=== PATIENT | female | born 1975 | race Two or more races ===

== ENCOUNTER → 2024-04-08 | Outpatient (CLI) | payer MEDICAID, SELFPAY ==
--- NOTE | 2024-04-08 13:00 | XR_ITS ---
Examination: Bone densitometry Date and time of exam:April 08, 2024 1326 hours INDICATIONS: Hysterectomy age 46 breast carcinoma diagnosis Technique: Lumbar spine and hip total bone mineralization values of an calculated. Peak reference and age match control results have been displayed. Findings: Lumbar spine total bone mineralization is0.925 gm/cm2. This is 1.1 standard deviations below peak reference. This is 0.6 standard deviations below age-matched controls. Hip total bone mineralization is 0.91 gm/cm2 This is 0.1 standard deviations above peak reference. This is 0.3 standard deviations above age-matched controls Impression: There is osteopenia based on lumbar spine measurements. There is normal mineralization based on hip measurements
== END | disposition home or self-care (01) ==
PROVIDERS: PCP Physician Assistant; Referring Provider Nurse Practitioner Family; Visit Provider Nurse Practitioner Family
DX: M85.88 Other specified disorders of bone density and structure, other site (principal); C50.412 Malignant neoplasm of upper-outer quadrant of left female breast
CPT/HCPCS: 77080

== ENCOUNTER 2024-04-11 13:21 | Outpatient (RCR) | payer MEDICAID, SELFPAY ==
--- NOTE | 2024-04-28 20:53 | CTCFLWUP_ITS ---
Patient: SUAD CAZARES : 1975 Page 2 of 3 FOLLOW UP NOTE DATE OF SERVICE: 04/11/2024 NAME: SUAD CAZARES ACCOUNT: [id number] : 1975 AGE: 48 REASON FOR VISIT: Follow up INTERVAL HISTORY: This is office follow-up visit. Ms. Cazares is here at [facility]. She is clinically doing well. Denies any new complaints. Denies any cough, chest pain, abdominal p ain or leg cramps. Tolerating tamoxifen well, taking since 2020. Denies any significant hot flashes . She is not having any menstrual cycle since she had a hysterectomy done in the past, 2011. Accord ing to patient she still has the ovaries. HISTORY: Suad Cazares is a 48-year-old SPA speaking female with following history. 2016. Patient felt pain in the left breast. 03/2019: Bilateral screening mammograms? 01/02/2020: Bilateral screening mammograms? 02/21/2020 diagnostic left breast mammogram? 02/21/2020: left breast ultrasound? 05/14/2020: Ultrasound-guided biopsy of the left breast lesion? 06/29/2020: Left breast lumpectomy? 08/26/2020?10/08/2020: Ms. Cazares received 6000 cGy radiation therapy to the left breast. 10/20/2020: Patient is started on tamoxifen. 11/12/2020: LH 6.3, FSH 7.2, estradiol 442. 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 Status post biopsy (05/01), Lumpectomy (06/29/2020) and radiation therapy completed on 10/08/2020 Patient is started on tamoxifen on 10/20/2020. Premenopausal status. S/p hysterectomy (2011). 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 Nolvadex - 20 mg Daily 2. tamoxifen - 20 mg 1 tab every 1 day for 30 Days 3. Tylenol Extra Strength - 500 mg 1 tab As needed Medications Last Reconciled by Charisma Barry MA on 04/11/2024 ALLERGIES: No Known Drug Allergies REVIEW OF SYSTEMS: A complete 14-point review of systems was performed and is negative except as noted in interval histo ry. PHYSICAL EXAMINATION: VITAL SIGNS: Temperature?99.6, B/P?133/85, Oxygen?Saturation?100% Weight?157?lbs PAIN: 0 - No pain ECOG Performance Status: 0 - Asymptomatic and fully active GENERAL APPEARANCE: Appears well, in no apparent distress, appropriately interactive. HEENT: Normocephalic, no temporal wasting, normal conjunctiva, no scleral icterus, normal hearing, li ps without lesions, neck normal range of motion. CARDIOVASCULAR: Not assessed. PULMONARY: Normal respiratory effort, no respiratory distress or use of accessory muscles, speaking i n full sentences, no tachypnea. EXTREMITIES: No pedal edema or cyanosis. SKIN: Normal skin appearance. NEUROLOGIC: Alert and ORIENTED x4. PSHYCHIATRIC: Appropriate affect, mood normal, behavior normal, intact thought and speech. 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 Negative for invasion. Status post biopsy (05/14/2020), S/p lumpectomy (06/29/2020) and adjuvant radiati on therapy completed on 10/08/2020 Patient is started on tamoxifen on (10/20/2020-), premenopausal stat us. S/p hysterectomy (2011). Ms. Cazares had a hysterectomy done in 2011 in [place] for some hoda of benign tumor. According to patient, she did not have the oophorectomy at that time. Will check CBC CMP FSH, LH, Estradiol, if labs indicate patient is postmenopausal, will consider disc ontinuing tamoxifen and starting exemestane. If patients is not postmenopausal, will consider initiating Lupron and continuing tamoxifen for about 3 years, once patients is postmenopausal then discontinue Lupron and tamoxifen and initiating exemes tane for 7 years. 04/08/2024 DEXA -Osteopenia mammogram screening is negative ORDERS: Mamm and cbc .cmp RETURN TO CLINIC: 12 months BILLING AND COMPLIANCE: I reviewed external records from providers outside my specialty as summarized above. I spent a total of 50 minutes on this patient?s care on the day of their visit excluding time spent related to any bi lled procedures. This time includes time spent with the patient as well as time spent documenting in the medical record, reviewing patients records and tests, obtaining history, placing orders, communi cating with other healthcare professionals, counseling the patient, family or caregiver, and/or care coordination for the diagnoses above. Electronically Signed by: lForentino Headley MD T: 8:50 PM CC: Arturo--Nikki? PCP: Pavithra Alexander Referring: Pavithra Alexander This document was completed utilizing speech recognition software. Grammatical errors, random word in sertions, pronoun errors, and incomplete sentences are an occasional consequence of this system due t o software limitations, ambient noise, and hardware issues. Any formal questions or concerns about th e content, text or information contained within the body of this dictation should be directly address ed to the provider for clarification.
== END 2024-04-30 23:59 | disposition home or self-care (01) ==
LOC: SCTC 13:21
PROVIDERS: PCP Physician Assistant; Referring Provider Physician Assistant; Visit Provider Internal Medicine Hematology & Oncology
DX: D05.12 Intraductal carcinoma in situ of left breast (principal); Z17.0 Estrogen receptor positive status [ER+]; Z17.21 Progesterone receptor positive status; Z79.810 Long term (current) use of selective estrogen receptor modulators (SERMs); Z79.818 Long term (current) use of other agents affecting estrogen receptors and estrogen levels; Z90.12 Acquired absence of left breast and nipple; Z90.710 Acquired absence of both cervix and uterus; M85.80 Other specified disorders of bone density and structure, unspecified site
CPT/HCPCS: 99213; G0463

== ENCOUNTER 2024-05-09 13:14 | Outpatient (RCR) | payer MEDICAID, SELFPAY | END 2024-05-31 23:59 | disposition home or self-care (01) | LOC: SCTC 13:14 | PROVIDERS: PCP Physician Assistant; Referring Provider Physician Assistant; Visit Provider Internal Medicine Hematology & Oncology | DX: Z53.8 Procedure and treatment not carried out for other reasons (principal); D05.12 Intraductal carcinoma in situ of left breast; Z17.0 Estrogen receptor positive status [ER+]; Z17.21 Progesterone receptor positive status; Z90.12 Acquired absence of left breast and nipple | CPT/HCPCS: J3489 ==

== ENCOUNTER 2024-08-07 08:39 | Outpatient (RCR) | payer MEDICAID, SELFPAY | END 2024-08-28 23:59 | disposition home or self-care (01) | LOC: SCTC 08:39 | PROVIDERS: PCP Physician Assistant; Referring Provider Physician Assistant; Visit Provider Nurse Practitioner Family | DX: D05.12 Intraductal carcinoma in situ of left breast (principal); Z17.0 Estrogen receptor positive status [ER+]; Z17.21 Progesterone receptor positive status; Z92.3 Personal history of irradiation; Z79.810 Long term (current) use of selective estrogen receptor modulators (SERMs); Z90.710 Acquired absence of both cervix and uterus; M85.80 Other specified disorders of bone density and structure, unspecified site | CPT/HCPCS: 99212; G0463 ==

== ENCOUNTER → 2024-09-06 | Outpatient (CLI) | payer MEDICAID, SELFPAY ==
--- NOTE | 2024-09-06 13:00 | XR_ITS ---
Examination: Breast ultrasound, unilateral, left complete Date and time of exam: September 06, 2024 1338 hours INDICATIONS: Personal history left breast cancer Technique: Real-time medel scale ultrasonographic imaging performed left breast including all 4 quadrants as well as nipple retroareolar and axillary region. Findings: No cystic or solid mass Scar formation at 2:00 position left breast IMPRESSION: BI-RADS Category 3: Probably benign findings Recommend continued 6 month left breast sonogram follow-up to document stability of probably benign scar formation 2:00 position left breast
--- NOTE | 2024-09-06 13:30 | XR_ITS ---
Examination: Diagnostic digital mammography, unilateral, left Computer aided detection 3-D breast Tomosynthesis, unilateral Date and time of exam: September 06, 2024 1401 hours Compared to mammograms dating to 01/29/2020 Technique: Nonmagnified MLO, CC views of the left breast have been obtained, reconstructed from 3-D Tomosynthesis images. R2 computer aided detection program utilized for evaluation of suspicious masses and/or abnormal calcifications. 3-D Tomosynthesis images obtained. Findings: Scattered areas of fibroglandular density. Benign calcifications No interval suspicious masses Impression: BI-RADS category 2: Benign findings Recommend yearly follow-up mammography
== END | disposition home or self-care (01) ==
PROVIDERS: PCP Physician Assistant; Referring Provider Nurse Practitioner Family; Visit Provider Nurse Practitioner Family
DX: C50.412 Malignant neoplasm of upper-outer quadrant of left female breast (principal); R92.1 Mammographic calcification found on diagnostic imaging of breast; R92.332 Mammographic heterogeneous density, left breast
CPT/HCPCS: 76641; 77061; 77065; G0279

== ENCOUNTER 2024-09-12 14:24 | Outpatient (RCR) | payer MEDICAID, SELFPAY | END 2024-09-28 23:59 | disposition home or self-care (01) | LOC: SCTC 14:24 | PROVIDERS: PCP Physician Assistant; Referring Provider Physician Assistant; Visit Provider Nurse Practitioner Family | DX: D05.12 Intraductal carcinoma in situ of left breast (principal); Z90.12 Acquired absence of left breast and nipple; Z92.3 Personal history of irradiation; Z17.0 Estrogen receptor positive status [ER+]; Z17.21 Progesterone receptor positive status; Z78.0 Asymptomatic menopausal state; Z90.710 Acquired absence of both cervix and uterus; M85.80 Other specified disorders of bone density and structure, unspecified site; Z79.811 Long term (current) use of aromatase inhibitors | CPT/HCPCS: 99212; G0463 ==

== ENCOUNTER 2024-10-16 15:17 | Outpatient (RCR) | payer MEDICAID, SELFPAY ==
--- NOTE | 2024-10-16 16:33 | CTCFLWUP_ITS ---
Patient: TORO CAZARES : 1975 Page 2 of 2 FOLLOW UP NOTE DATE OF SERVICE: 10/16/2024 NAME: TORO CAZARES ACCOUNT: [id number] : 1975 AGE: 49 INTERVAL HISTORY: Patient is here for follow-up. Patient states that she has a history of hysterectomy which was completed in 2011 but her ovaries were never removed. She is questioning if she is in menopause. She does not know if she was ever tested for her menopause status. At her last visit she had her medication changed to exemestane. She is not happy with the exemestane as it causes her to feel very tired. She wants to switch back to tamoxifen. She also takes her calcium and vitamin D as prescribed. 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 Status post biopsy (05/14/2020), Lumpectomy (06/29/2020) and radiation therapy completed on 10/08/2020 Patient is started on tamoxifen on 10/20/2020. Premenopausal status. S/p hysterectomy (2011). Osteopenia, 04/08/2024 Malignant neoplasm of upper-outer quadrant of left female breast [ICD10] C50.412 DATE OF DIAGNOSIS: 05/14/2020 STAGE/TNM: TREATMENT HISTORY: Care?Plan Start?Date Cycle Day Intent Zoledronic?Acid?4?mg?adjuvant 05/09/2024 1 180 Maintenance HISTORY OF PRESENT ILLNESS: Patient is 49-year-old woman who was diagnosed with DCIS ER/CO positive in 2020 underwent lumpectomy in June 2020 and has been on tamoxifen since . Patient also received radiation. Patient had a hysterectomy done in 2011 in [place] for some kind of benign tumors. Patient says that she did not had oophorectomy. 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 alendronate - 35 mg 1 tab one tab po q weekly 2. Calcium 600 with Vitamin D3 - 600 mg-10 mcg (400 unit) 1 tab one tablet twice daily 3. Citracal + D Slow Release - 600 mg-12.5 mcg (500 unit) 1 tab one tab po twice a day 4. tamoxifen - 20 mg 1 tab Daily 5. Tylenol Extra Strength - 500 mg 1 tab As needed Medications Last Reconciled by Jena Barrios MA on 10/16/2024 ALLERGIES: No Known Drug Allergies REVIEW OF SYSTEMS: A complete 14-point review of systems was performed and is negative except as noted in interval history. PHYSICAL EXAMINATION: VITAL SIGNS: PAIN: 0 - No pain ECOG Performance Status: 0 - Asymptomatic and fully active GENERAL APPEARANCE: Appears well, in no apparent distress, appropriately interactive. HEENT: Normocephalic, no temporal wasting, normal conjunctiva, no scleral icterus, normal hearing, lips without lesions, neck normal range of motion, no neck lymphadenopathy CARDIOVASCULAR: Not assessed. PULMONARY: Normal respiratory effort, no respiratory distress or use of accessory muscles, speaking in full sentences, no tachypnea. BREAST: No palpable lumps to left breast, no lumps to left axilla, healed surgical scar EXTREMITIES: No pedal edema or cyanosis. SKIN: Normal skin appearance. NEUROLOGIC: Alert and ORIENTED x4. PSHYCHIATRIC: Appropriate affect, mood normal, behavior normal, intact thought and speech. LABORATORY DATA: I have personally reviewed and interpreted each of the patient?s relevant lab tests, abnormal findings are below: Date ASSESSMENT/PLAN: 1. 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 Negative for invasion. Status post biopsy (05/14/2020), S/p lumpectomy (06/29/2020) and adjuvant radiation therapy completed on 10/08/2020 Patient is started on tamoxifen on (10/20/2020-), premenopausal status. S/p hysterectomy (2011). Ms. Cazares had a hysterectomy done in 2011 in [place] for some hoda of benign tumor. According to patient, she did not have the oophorectomy at that time. Patient had labs drawn in May 2024 which showed that patient was in menopause as per previous documentation I will repeat the labs as patient have concerns Patient already scheduled for breast ultrasound in March 2025 Advised to continue tamoxifen as patient unable to tolerate exemestane Will DC exemestane Tamoxifen reordered Will recheck the labs to confirm her menopause status 3. History of osteopenia 04/08/2024 Start Zometa after 01/29/2025, 6 months after dental work. ORDERS: Order # Description [id number] + MD Follow Up 4 Week [id number] Gonadotropin (Fsh) + Estradiol + Gonadotropin; Luteinizing Hormone (Lh) [id number] Infusion 1 Hour [id number] Infusion 1 Hour [id number] Infusion 1 Hour [id number] Infusion 1 Hour [id number] Infusion 1 Hour RETURN TO CLINIC: In 4 months BILLING AND COMPLIANCE: I reviewed external records from providers outside my specialty as summarized above. I spent a total of 50 minutes on this patient?s care on the day of their visit excluding time spent related to any billed procedures. This time includes time spent with the patient as well as time spent documenting in the medical record, reviewing patients records and tests, obtaining history, placing orders, communicating with other healthcare professionals, counseling the patient, family or caregiver, and/or care coordination for the diagnoses above. Electronically Signed by: Florentino Headley MD T: 4:31 PM CC: Arturo--Nikki,? PCP: Pavithra Alexander Referring: Pavithra Alexander This document was completed utilizing speech recognition software. Grammatical errors, random word insertions, pronoun errors, and incomplete sentences are an occasional consequence of this system due to software limitations, ambient noise, and hardware issues. Any formal questions or concerns about the content, text or information contained within the body of this dictation should be directly addressed to the provider for clarification.
== END 2024-10-28 23:59 | disposition home or self-care (01) ==
LOC: SCTC 15:17
PROVIDERS: PCP Physician Assistant; Referring Provider Physician Assistant; Visit Provider Internal Medicine Hematology & Oncology
DX: D05.12 Intraductal carcinoma in situ of left breast (principal); Z17.0 Estrogen receptor positive status [ER+]; Z17.21 Progesterone receptor positive status; Z90.12 Acquired absence of left breast and nipple; Z92.3 Personal history of irradiation; Z79.810 Long term (current) use of selective estrogen receptor modulators (SERMs); Z90.710 Acquired absence of both cervix and uterus; M85.80 Other specified disorders of bone density and structure, unspecified site
CPT/HCPCS: 99212; G0463

== ENCOUNTER 2024-11-06 12:51 | Outpatient (RCR) | payer MEDICAID, SELFPAY | END 2024-11-28 23:59 | disposition home or self-care (01) | LOC: SCTC 12:51 | PROVIDERS: PCP Physician Assistant; Referring Provider Physician Assistant; Visit Provider Radiology Therapeutic Radiology | DX: M85.80 Other specified disorders of bone density and structure, unspecified site (principal); D05.12 Intraductal carcinoma in situ of left breast; Z17.0 Estrogen receptor positive status [ER+]; Z17.21 Progesterone receptor positive status; Z90.12 Acquired absence of left breast and nipple; Z92.3 Personal history of irradiation; Z79.810 Long term (current) use of selective estrogen receptor modulators (SERMs); Z90.710 Acquired absence of both cervix and uterus | CPT/HCPCS: J3489 ==

== ENCOUNTER 2025-01-14 11:26 | Outpatient (RCR) | payer MEDICAID, SELFPAY ==
--- NOTE | 2025-01-14 14:23 | CTCFLWUP_ITS ---
Patient: TORO CAZARES : 1975 Page 2 of 3 FOLLOW UP NOTE DATE OF SERVICE: 01/14/2025 NAME: TORO CAZARES ACCOUNT: [id number] : 1975 AGE: 49 INTERVAL HISTORY: Patient is here for follow-up. Patient states that she has a history of hysterectomy which was completed in 2011 but her ovaries were never removed. Workup shows patient is still premenopausal. Patient is taking tamoxifen. 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 Status post biopsy (05/14/2020), Lumpectomy (06/29/2020) and radiation therapy completed on 10/08/2020 Patient is started on tamoxifen on 10/20/2020. Premenopausal status. S/p hysterectomy (2011). Osteopenia, 04/08/2024 Malignant neoplasm of upper-outer quadrant of left female breast [ICD10] C50.412 DATE OF DIAGNOSIS: 05/14/2020 STAGE/TNM: TREATMENT HISTORY: Care?Plan Start?Date Cycle Day Intent Zoledronic?Acid?4?mg?adjuvant 11/06/2024 1 180 Maintenance HISTORY OF PRESENT ILLNESS: Patient is 49-year-old woman who was diagnosed with DCIS ER/FL positive in 2020 underwent lumpectomy in June 2020 and has been on tamoxifen since . Patient also received radiation. Patient had a hysterectomy done in 2011 in [place] for some kind of benign tumors. Patient says that she did not had oophorectomy. 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 Calcium 600 with Vitamin D3 - 600 mg-10 mcg (400 unit) 1 tab one tablet twice daily 2. tamoxifen - 20 mg 1 tab Daily 3. Tylenol Extra Strength - 500 mg 1 tab As needed Medications Last Reconciled by Charisma Barry MA on 01/14/2025 ALLERGIES: No Known Drug Allergies REVIEW OF SYSTEMS: A complete 14-point review of systems was performed and is negative except as noted in interval history. PHYSICAL EXAMINATION: VITAL SIGNS: PAIN: 0 - No pain ECOG Performance Status: 0 - Asymptomatic and fully active GENERAL APPEARANCE: Appears well, in no apparent distress, appropriately interactive. HEENT: Normocephalic, no temporal wasting, normal conjunctiva, no scleral icterus, normal hearing, lips without lesions, neck normal range of motion, no neck lymphadenopathy CARDIOVASCULAR: Not assessed. PULMONARY: Normal respiratory effort, no respiratory distress or use of accessory muscles, speaking in full sentences, no tachypnea. BREAST: No palpable lumps to left breast, no lumps to left axilla, healed surgical scar EXTREMITIES: No pedal edema or cyanosis. SKIN: Normal skin appearance. NEUROLOGIC: Alert and ORIENTED x4. PSHYCHIATRIC: Appropriate affect, mood normal, behavior normal, intact thought and speech. LABORATORY DATA: I have personally reviewed and interpreted each of the patient?s relevant lab tests, abnormal findings are below: Date ASSESSMENT/PLAN: 1. 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 Negative for invasion. Status post biopsy (05/14/2020), S/p lumpectomy (06/29/2020) and adjuvant radiation therapy completed on 10/08/2020 Patient is started on tamoxifen on (10/20/2020-), premenopausal status. S/p hysterectomy (2011). Ms. Cazares had a hysterectomy done in 2011 in [place] for some hoda of benign tumor. According to patient, she did not have the oophorectomy at that time. Patient is still premenopausal with the repeat labs Continue tamoxifen till September 2025 for total 5 years 3. History of osteopenia 04/08/2024 Start Zometa after 01/29/2025, 6 months after dental work. Continue calcium and vitamin D ORDERS: Order # Description [id number] Comprehensive Metabolic Panel - 12 + CBC with Auto Diff + MD Follow Up 6 Month [id number] Infusion 1 Hour [id number] Infusion 1 Hour [id number] Infusion 1 Hour [id number] Infusion 1 Hour [id number] Infusion 1 Hour RETURN TO CLINIC: I reviewed the diagnosis, prognosis, and recommended treatment/procedure options with the patient (and/or their legal medical claims representative), including the potential benefits, risks, side effects and alternative therapies. We also discussed the option of no treatment and the possibility of clinical trial participation, if applicable. All questions were addressed, and they demonstrated understanding. They provided informed consent to proceed with the proposed plan of care. BILLING AND COMPLIANCE: I reviewed external records from providers outside my specialty as summarized above. I spent a total of 50 minutes on this patient?s care on the day of their visit excluding time spent related to any billed procedures. This time includes time spent with the patient as well as time spent documenting in the medical record, reviewing patients records and tests, obtaining history, placing orders, communicating with other healthcare professionals, counseling the patient, family or caregiver, and/or care coordination for the diagnoses above. Electronically Signed by: Florentino Headley MD T: 2:21 PM CC: Arturo--Nikki? PCP: Pavithra Alexander Referring: Pavithra Alexander This document was completed utilizing speech recognition software. Grammatical errors, random word insertions, pronoun errors, and incomplete sentences are an occasional consequence of this system due to software limitations, ambient noise, and hardware issues. Any formal questions or concerns about the content, text or information contained within the body of this dictation should be directly addressed to the provider for clarification.
== END 2025-01-28 23:59 | disposition home or self-care (01) ==
LOC: SCTC 11:26
PROVIDERS: PCP Physician Assistant; Referring Provider Physician Assistant; Visit Provider Internal Medicine Hematology & Oncology
DX: D05.12 Intraductal carcinoma in situ of left breast (principal); Z17.0 Estrogen receptor positive status [ER+]; Z17.21 Progesterone receptor positive status; Z90.12 Acquired absence of left breast and nipple; Z92.3 Personal history of irradiation; Z79.810 Long term (current) use of selective estrogen receptor modulators (SERMs); Z90.710 Acquired absence of both cervix and uterus
CPT/HCPCS: 99213; G0463

== ENCOUNTER 2025-03-18 13:11 | Outpatient (RCR) | payer MEDICAID, SELFPAY | END 2025-03-30 23:59 | disposition home or self-care (01) | LOC: SCTC 13:11 | PROVIDERS: PCP Physician Assistant; Referring Provider Radiology Therapeutic Radiology; Visit Provider Radiology Therapeutic Radiology | DX: M85.80 Other specified disorders of bone density and structure, unspecified site (principal); D05.12 Intraductal carcinoma in situ of left breast; Z17.0 Estrogen receptor positive status [ER+]; Z17.21 Progesterone receptor positive status; Z90.12 Acquired absence of left breast and nipple; Z92.3 Personal history of irradiation; Z79.810 Long term (current) use of selective estrogen receptor modulators (SERMs); Z90.710 Acquired absence of both cervix and uterus; Z78.0 Asymptomatic menopausal state | CPT/HCPCS: 96361; 96365; 99212; J3489; J7030; G0463 ==

== ENCOUNTER → 2025-04-18 | Outpatient (CLI) | payer MEDICAID, SELFPAY ==
--- NOTE | 2025-04-18 07:15 | XR_ITS ---
Examination: Breast ultrasound, unilateral, left complete Date and time of exam: April 18, 2025, 0739 hours INDICATIONS: Personal history left breast cancer lumpectomy 2020, scar formation 12 o'clock position left breast on left breast sonogram 12/07/2024 Technique: Real-time medel scale ultrasonographic imaging performed left breast including all 4 quadrants as well as nipple retroareolar and axillary region. Findings: Stable scar formation 2 o'clock position left breast No interval suspicious mass IMPRESSION: BI-RADS Category 2: Benign finding
== END | disposition home or self-care (01) ==
PROVIDERS: Referring Provider Nurse Practitioner Family; Visit Provider Nurse Practitioner Family
DX: C50.412 Malignant neoplasm of upper-outer quadrant of left female breast (principal); Z85.3 Personal history of malignant neoplasm of breast
CPT/HCPCS: 76641

== ENCOUNTER → 2025-04-29 | Outpatient (CLI) | payer MEDICAID, SELFPAY ==
--- NOTE | 2025-04-29 08:30 | XR_ITS ---
Examination: Screening digital mammography, bilateral Computer aided detection 3-D breast Tomosynthesis, bilateral Date and time of exam: 04/29/2025, 8:09 a.m. Comparisons: March 2022 through August 2024 Indications: Screening, personal history of left breast cancer Technique: Nonmagnified MLO, CC views of the breasts to been obtained, reconstructed from 3-D Tomosynthesis images. R2 computer aided detection program utilized for evaluation of suspicious masses and/or abnormal calcifications. 3-D Tomosynthesis images obtained. Technologist: Findings: There are scattered areas of fibroglandular density. Stable postoperative changes in the left breast. Focal asymmetry upper right breast posterior right upper outer quadrant, 7.5 cm from the nipple on the cc view. Otherwise, no evidence of abnormal masses or suspicious calcifications. Impression: Right focal asymmetry as above. Spot compression views and possible ultrasound evaluation. BI-RADS category 0: Incomplete assassment; need additional imaging evaluation
== END | disposition home or self-care (01) ==
LOC: CDIM 08:00
PROVIDERS: Referring Provider Nurse Practitioner Family; Visit Provider Nurse Practitioner Family
DX: Z12.31 Encounter for screening mammogram for malignant neoplasm of breast (principal); N64.89 Other specified disorders of breast; R92.8 Other abnormal and inconclusive findings on diagnostic imaging of breast; C50.412 Malignant neoplasm of upper-outer quadrant of left female breast
CPT/HCPCS: 77063; 77067